=== PATIENT | male | born 1970 | race Caucasian/White ===

== ENCOUNTER 2019-08-20 13:37 | Emergency (ER) | payer SELFPAY ==
[~2019-08-20] VITALS: Ht 167.6 cm; Wt 70.9 kg
[2019-08-20 13:44] VITALS: BP 131/99
[2019-08-20] MEDS ORDERED: IOHEXOL 300 MG/ML 75 ML VIAL. IV ONE (14:30)
[2019-08-20] MEDS ORDERED: IV NORMAL SALINE 1,000ML 1,000 ML IV ONE (14:30)
--- NOTE | 2019-08-20 14:34 | PHYS DOC ---
Past History Past Medical History: Kidney Stones, Other Additional Past Medical Histor: BPH Past Surgical History: Other Additional Past Surgical Histo: hernia sx, ureteral stent Smoking: Cigarettes (36 years) Alcohol Use: Occasionally Drug Use: None Adult General Chief Complaint Chief Complaint: BLOODY STOOL HPI HPI Patient is a 41-year-old male who presents to evaluation of rectal bleeding and rectal pain. He states that for nearly a decade he has noticed occasional 2-3 drops of blood upon stooling without wiping however over the last 2-3 weeks he has had multiple bloody bowel movements that are associated with rectal pain. She describes the rectal pain as severe and sharp without radiation. Sitting and movement seemed to make the pain worse. Nothing in particular seems to make the pain any better. Last week he had 1 particularly concerning event which he went to urinate and with increased intra-abdominal pressure had a liquid and voluminous bloody bowel movement. He states that at some point in his early 20s he was noted to have a large prostate but has not followed up since. Now he feels that there is no large mass approximation to his anus. He does describe urinary hesitancy with some dysuria but denies hematuria although his urine has been a darker color. Patient does not have any complaints of symptomatic anemia such as chest pain, shortness of breath, lightheadedness. Denies any nausea, v omiting, fevers, chills, night sweats, recent weight changes, bone or joint pain. Upon leaving the exam room patient disclosed that he has had increasing concern regarding a pelvic mass that has been enlarging over the last 2 years. He states he does not bleed but feels as if it is open. Says that it is enlarging in size and is now itchy and very tender. He states that he has not h ad sexual intercourse since 2013 although he does have remote history of intercourse with males. Review of Systems Review of Systems Constitutional: Denies fever or chills HENT: Denies sore throat or oral lesions Respiratory: Denies cough or shortness of breath Cardiovascular: Denies chest pain, dizziness or palpitations GI: Reports lower abdominal and rectal pain. Reports hematochezia. Denies nausea or vomiting. : Reports urinary hesitancy and dysuria. Denies hematuria Musculoskeletal: Denies back pain or joint pain Integument: Denies rash or skin lesions Neurologic: Denies headache, focal weakness or sensory changes Complete systems were reviewed and found to be within normal limits, except as documented in this note. Current Medications Current Medications Current Medications Medications (Trade) Dose Ordered Sig/Chelly Start Time Stop Time Status Last Admin Dose Admin Sodium Chloride 1,000 ml @ 1,000 mls/hr 1X ONCE 08/20/19 14:30 08/20/19 15:29 UNV Allergies Allergies Allergies Coded Allergies Type Severity Reaction Last Updated Verified No Known Drug Allergies 08/20/19 No Physical Exam Physical Exam Constitutional: Well-developed, tearful and anxious appearing middle-aged man in no acute distress HENT: Normocephalic, atraumatic, oropharynx moist with poor dentition Eyes: Conjunctiva normal, no discharge Cardiovascular: Heart rate normal, regular rhythm Lungs & Thorax: Bilateral breath sounds clear to auscultation, no wheezing Abdomen: Soft and nondistended. Mild tenderness described as fullness throughout the abdomen. No peritoneal signs such as rebound, rigidity or guarding Skin: Warm, dry, no erythema, no rash Back: No tenderness or lesions : One and half centimeter raised macular lesion with some apparent irritation but no obvious ulceration or bleeding present at the dorsal aspect of the base of the penis Rectal: External hemorrhoids present on visual inspection. Digital rectal examination without stool in rectal vault. No evidence of hematochezia. No palpable masses that would suggest internal hemorrhoids. Psychologic: Affect is tearful, judgment normal Current Patient Data Vital Signs Vital Signs Date Time Temp Pulse Resp B/P (MAP) Pulse Ox O2 Delivery O2 Flow Rate FiO2 08/20/19 13:44 107 18 131/99 (110) 95 EKG EKG [] Radiology/Procedures Radiology/Procedures [] Course & Med Decision Making Course & Med Decision Making Pertinent Labs and Imaging studies reviewed. (See chart for details) Patient is a 49-year-old male who presents to the ED for evaluation of multiple weeks of reportedly bloody and painful bowel movements. He is also describing urinary hesitation as well as dysuria. On arrival to the emergency department he appears clinically well although tearful. Hemodynamically stable. Denies any symptoms that would suggest symptomatic anemia. CBC unremarkable with hemoglobin well within normal limits. No evidence of acute infection. UA negative for hematuria or evidence of UTI. CT of the abdomen and pelvis negative for any acute process or mass. On rectal exam patient was found to have external hemorrhoids. There is no stool in the rectal vault and no valeriano blood was appreciated on digital rectal exam. exam with findings suggestive of genital warts. [] Dragon Disclaimer Dragon Disclaimer This electronic medical record was generated, in whole or in part, using a voice recognition dictation system. Departure Departure: Impression: Primary Impression: Rectal bleeding Additional Impression: Genital warts Disposition: HOME, SELF-CARE Condition: STABLE Referrals: PCP,TANIKA (PCP) BEATRIZ GANDHI MD Patient Instructions: Genital Warts, [id number], Rectal Bleeding, Easy-to-Re ad Scripts Podofilox (CONDYLOX) 3.5 Gm Gel..gram. 1 CHESTER TP Q12HR for Warts for 3 Days, #1 TUBE Prov: AG JOHNSTON DO 08/20/19 Sennosides/Docusate Sodium (Colace 2-in-1 Tablet) 1 Each Tablet 1 TAB PO QHS for Constipation for 30 Days, #30 TAB 0 Refills Prov: AG JOHNSTON DO 08/20/19 Hydrocortisone Acetate (ANUSOL-HC) 25 Mg Supp.rect 1 SUPP RC BID for rectal bleeding for 7 Days, #14 SUPP 0 Refills Prov: AG JOHNSTON DO 08/20/19 Problem Qualifiers AG JOHNSTON DO Aug 20, 2019 14:34
[2019-08-20 14:57] LABS: BASO # 0.1 x10^3/uL (0.0-0.2); BASO % 1 % (0-3); EOS # 0.2 x10^3/uL (0.0-0.7); EOS % 3 % (0-3); HEMATOCRIT 50.5 % (39.0-53.0); HEMOGLOBIN 17.3 g/dL (13.0-17.5); LYMPH # 2.9 x10^3/uL (1.0-4.8); LYMPH % 51 % (24-48); MEAN CORPUSCULAR HEMOGLOBIN 31 pg (25-35); MEAN CORPUSCULAR HGB CONC 34 g/dL (31-37); MEAN CORPUSCULAR VOLUME 92 fL (79-100); MONO # 0.4 x10^3/uL (0.0-1.1); MONO % 7 % (0-9); NEUT # 2.2 x10^3uL (1.8-7.7); NEUT % 39 % (31-73); PLATELET COUNT 252 x10^3/uL (140-400); RED BLOOD COUNT 5.53 x10^6/uL (4.30-5.70); WHITE BLOOD COUNT 5.8 x10^3/uL (4.0-11.0)
[2019-08-20 15:10] LABS: CALCIUM 8.5 mg/dL (8.5-10.1); GFR 79.8; POTASSIUM 3.5 mmol/L (3.5-5.1)
[2019-08-20 15:16] LABS: ALBUMIN 3.7 g/dL (3.4-5.0); ALBUMIN/GLOBULIN RATIO 0.9 (1.0-1.7); MAGNESIUM 2.2 mg/dL (1.8-2.4); TOTAL BILIRUBIN 0.3 mg/dL (0.2-1.0); TOTAL PROTEIN 7.6 g/dL (6.4-8.2)
[2019-08-20 15:32] LABS: BACTERIA,URINE 0 /HPF (0-FEW); BILIRUBIN,URINE NEG (NEG); CLARITY,URINE CLEAR; COLOR,URINE STRAW; GLUCOSE,URINE NEG (NEG); NITRITE,URINE NEG (NEG); RBC,URINE 0 /HPF (0-2); SQUAMOUS EPITHELIAL CELL,UR OCC /LPF; UROBILINOGEN,URINE 0.2 mg/dL (0.2 mg/dL); WBC,URINE OCC /HPF (0-4)
--- NOTE | 2019-08-20 15:50 | RAD ---
Exam performed: CT scan of the abdomen and pelvis with contrast Indication: Rectal pain, abdominal pain and distention Date of Service: 08/20/2019. Comparison: None available Technique: Contiguous helical acquisitions are obtained through the abdomen and pelvis during intravenous administration of 75 cc of Omnipaque 300.. In addition sagittal and coronal reformatted images are obtained and reviewed. CT scan abdomen and pelvis findings: The lung bases are clear. Visualized heart is normal. Mild hepatic steatosis. The gallbladder, spleen and pancreas appear normal. . Both adrenal glands and bilateral kidneys appear normal with symmetric excretion of contrast via both kidneys. No hydronephrosis The aorta is normal in caliber demonstrating mild atheromatous calcification. No retroperitoneal lymphadenopathy is identified. The small bowel loops are nondilated and unremarkable . No bowel related stranding or mesenteric lymphadenopathy seen.The urinary bladder is inadequately distended and apparently thick-walled. Prostate gland, seminal vesicles and rectum appear normal.. No pelvic side wall lymphadenopathy or free fluid seen. Bones unremarkable. Impression CT Abdomen and pelvis: 1. Mild hepatic steatosis. No acute findings seen in the abdomen and pelvis. PQRS Compliance Statement: One or more of the following individualized dose reduction techniques were utilized for this examination: 1. Automated exposure control 2. Adjustment of the mA and/or kV according to patient size 3. Use of iterative reconstruction technique Electronically signed by: Davina Demarco MD (08/20/2019 3:48 PM) [id number]
[2019-08-20] MEDS ORDERED: SENN-121 PO (16:15)
[2019-08-20] MEDS ORDERED: HYDR25SU18 RC (16:15)
[2019-08-20] MEDS ORDERED: PODO3.5G TP (16:15)
== END 2019-08-20 16:33 | disposition home or self-care (01) ==
LOC: ER 13:37
DX: K62.5 Hemorrhage of anus and rectum (principal); B07.8 Other viral warts; R30.0 Dysuria; F17.210 Nicotine dependence, cigarettes, uncomplicated; Z87.442 Personal history of urinary calculi
CPT/HCPCS: 36415; 74177; 80053; 81001; 83690; 83735; 85025; 85610; 85730; 99285; Q9967; J7030